=== PATIENT | female | born 1970 | race Caucasian/White ===

== ENCOUNTER 2024-11-01 17:22 | Emergency (ER) | payer BC, SELFPAY ==
[2024-11-01 17:28] VITALS: BP 153/96; PULSE 85; RESP 15; TEMP 36.7; O2SAT 98; BMI 31.6
[2024-11-01] MEDS: orphenadrine 30 mg/mL Inj 2 mL 60 MG IM (18:25)
[2024-11-01] MEDS: dexamethasone 10 mg/mL INJ IM (18:25)
--- NOTE | 2024-11-01 18:28 | W.ED.NECK ---
HPI - Neck Pain/Injury General: Chief Complaint: Neck Pain/Injury Stated Complaint: neck should arm pain Time Seen by Provider: 11/01/24 18:15 Source: patient Mode of arrival: ambulatory Limitations: no limitations History of Present Illness: Patient is a 54-year-old female with no pertinent past medical history reporting to the emergency department planing of left neck pain beginning yesterday. Patient states yesterday she was lifting heavy, believes she strained a muscle. No trauma reported. She is noting that the pain comes in intermittent sharp waves and will radiate down the entirety of her left arm. Exacerbating factors are range of motion. Has not tried any medications or other remedies. No history of neck surgeries. MD complaint: neck pain Onset (ago): day(s) Radiation: left lateral Severity: moderate Quality: sharp Duration: intermittent Exacerbating factors: movement of extremity and movement of neck Context: lifting Associated symptoms: Denies headache(s) or nausea Treatments prior to arrival: none Related Data Previous Rx's ?Medication ?Instructions ?Recorded ketorolac 10 mg tablet 10 mg PO Q8H PRN pain #15 tabs 11/01/24 methocarbamol 750 mg tablet 750 mg PO Q8H 5 days #15 tabs 11/01/24 prednisone 20 mg tablet 60 mg (3 x 20 mg) PO ONCE 5 days 11/01/24 #15 tabs Allergies Allergy/AdvReac Type Severity Reaction Status Date / Time No Known Allergies Allergy Verified 11/01/24 17:31 Review of Systems General: Reports: 10 or more systems reviewed and unremarkable except in HPI and below Const: Denies: fever(s) or chills Card: Denies: chest pain Resp: Denies: dyspnea or productive cough GI: Denies: abdominal pain, nausea, vomiting or diarrhea : Denies: flank pain Musc: Reports: neck pain; Denies: back pain, extremity pain, extremity swelling, joint pain, joint swelling, joint redness, joint warmth, limited range of motion or muscle weakness Skin/Breast: Denies: rash Neuro: Reports: numbness in extremities; Denies: headache(s) or weakness in extremities Physical Exam Const: COMMON NORMALS: no acute distress, patient oriented x3, no limitations, healthy appearing, alert and well nourished HENMT: COMMON NORMALS: normocephalic and atraumatic HEAD & SCALP: normocephalic and atraumatic Neck/C-Spine: COMMON NORMALS: full ROM, supple and no meningeal signs OTHER: No cervical spine tenderness to palpation. Negative reproducible tenderness to palpation to left lateral neck and left trapezius. Negative Adson's. Resp: COMMON NORMALS: normal respiratory effort, No use of accessory muscles and clear to auscultation bilaterally AUSCULTATION: clear to auscultation bilaterally Cardio: COMMON NORMALS: regular rate and regular rhythm RATE: regular rate RHYTHM: regular rhythm Extremity: COMMON NORMALS: normal to inspection, full ROM, capillary refill normal, no joint enlargement and no clubbing, cyanosis or edema Neuro: COMMON NORMALS: patient oriented x3, moves all extremities, no focal motor deficits and no sensory deficits noted SENSORIUM/ORIENTATION: Yes alert MENINGEAL SIGNS: Yes no meningeal signs Skin: COMMON NORMALS: no rashes or lesions noted GENERAL SKIN EXAM: no rashes or lesions noted Course Vital Signs: Vital signs: Vital Signs Temperature 98.0 F 11/01/24 17:28 Pulse Rate 85 11/01/24 17:28 Respiratory Rate 15 11/01/24 17:28 Blood Pressure 153/96 11/01/24 17:28 Pulse Oximetry 98 11/01/24 17:28 Oxygen Delivery Me thod Room Air 11/01/24 17:28 MDM - Neck Pain/Injury Medical Decision Making I suspect musculoskeletal strain versus cervical radiculopathy, could be originating from degenerative changes of the cervical spine. However with symptoms being mild and negative testing for thoracic outlet syndrome or cervical fracture will have the patient treat with medications and conservatively at home. She states she does not have primary care so we will attempt to set up outpatient reevaluation with primary care, and did tell her to return if her symptoms worsen. No radiology studies performed this visit Discharge Plan Discharge Patient Disposition: Home Clinical Impression: Cervical radicular pain Condition: Stable Prescriptions: New prednisone 20 mg tablet 60 mg PO ONCE 5 Days Qty: 15 0RF ketorolac 10 mg tablet 10 mg PO Q8H PRN (Reason: pain) Qty: 15 0RF methocarbamol 750 mg tablet 750 mg PO Q8H 5 Days Qty: 15 0RF Discharge Orders: Discharge ED (Routine); Ordered 11/01/24 Ordered By: Jai Parr Patient Instructions: Cervical Radiculopathy (ED) Activity Restrictions/Additional Instructions: Take medications as prescribed. Range of motion exercises as tolerated. Please apply heat for added relief. Follow-up with regular doctor as arranged. Return with any new or worsening. Print Language: Tuvaluan Coding Level of Care Code ED [employer]
[2024-11-01] MEDS: ketorolac 60 mg/2 mL INJ IM (18:40)
--- NOTE | 2024-11-02 07:16 | DCPLANNER ---
messaged [facility] to establish PCP
== END 2024-11-01 18:47 | disposition home or self-care (01) ==
PROVIDERS: Emergency Provider Physician Assistant
DX: M54.12 Radiculopathy, cervical region (principal)
CPT/HCPCS: 96372; 99284; J1100; J1885; J2360